=== PATIENT | male | born 1955 | race African-American/Black ===

== ENCOUNTER 2020-01-28 11:03 | Emergency (ER) | payer BC ==
[~2020-01-28] VITALS: Ht 162.6 cm; Wt 75.0 kg
[2020-01-28] MEDS ORDERED: LISI-604 PO (11:16)
[2020-01-28] MEDS ORDERED: KETOROLAC 60MG/2ML VIAL IM ONE (12:00)
[2020-01-28 13:52] VITALS: BP 157/95
== END 2020-01-28 13:52 | disposition home or self-care (01) ==
LOC: ER 11:03
DX: M54.5 Low back pain (principal); M54.16 Radiculopathy, lumbar region; I10 Essential (primary) hypertension
CPT/HCPCS: 72131; 96372; 99284; J1885